=== PATIENT | female | born 1970 | race Caucasian/White ===

== ENCOUNTER 2016-11-14 14:37 | Emergency (ER) | payer OTHER ==
[~2016-11-14] VITALS: Ht 175.3 cm; Wt 84.0 kg
[~2016-11-14 14:37] MED LIST: BENTYL10 MG PO; CIPRO500 MG PO; CIPROFLOXACIN500 M1 PO; DEXEDRINE15 MG PO; DEXTROAMPHETAMINE PO; HYOSCYAMINE0.125 MG PO; KEFLEX500 MG PO; KLONOPIN1 MG PO; METFORMIN HCL500 MG PO; MOTRIN800 MG PO; NORCO 5/3251 TABLET PO; PERCOCET 5/31 TABLET PO; PREVACID30 MG PO; PROBIOTIC1 EAC1 PO; REGLAN5 MG PO; ULTRAM50 MG PO; ZOFRAN ODT4 MG PO; ZOFRAN4 MG PO; ZOVIRAX200 MG PO
[2016-11-14] MEDS ORDERED: DEXTROAMPHETAMI15 MG PO (16:18)
[2016-11-14] MEDS ORDERED: LISINOPRIL10 MG PO (16:18)
[2016-11-14 16:30] LABS: CHLORIDE 102 mEq/L (99-109); POTASSIUM 4.1 mEq/L (3.7-5.4); SODIUM 134 mEq/L (136-147)
[2016-11-14 16:32] LABS: GLUCOSE 178 mg/dL (70-99)
[2016-11-14 16:33] LABS: ANION GAP 12 MEQ/L (2-14)
[2016-11-14 16:36] LABS: GFR ESTIMATE (CALCULATED) 56 mL/min/; UREA NITROGEN (BUN) 14 mg/dL (9-23)
[2016-11-14 17:37] LABS: ADD MIUA? YES; BILIRUBIN NEGATIVE; BLOOD TRACE; COLOR YELLOW ((YELLOW)); GLUCOSE (STRIP) >=1000; KETONES TRACE; LEUKOCYTES NEGATIVE; NITRITE NEGATIVE; PH, URINE 5.5 (5-8); PROTEIN (STRIP) 30; SPECIFIC GRAVITY 1.032 (1.000-1.030); UROBILINOGEN 0.2 MG/DL (0.2-1.0)
[2016-11-14 17:59] LABS: EPITHELIAL CELLS RARE; WHITE BLOOD CELLS NONE SEEN /HPF (0-5)
[2016-11-14 18:00] LABS: BACTERIA RARE; CASTS NONE SEEN /LPF; CRYSTALS NONE SEEN; MUCUS NONE SEEN; RED BLOOD CELLS RARE /HPF (0-5)
[2016-11-14 20:49] VITALS: BP 144/67
== END 2016-11-14 20:58 | disposition home or self-care (01) ==
LOC: EME 14:37
PROVIDERS: Physician Assistant
DX: B34.9 Viral infection, unspecified (principal); R50.9 Fever, unspecified; R52 Pain, unspecified; R51 Headache; M54.5 Low back pain; Z87.442 Personal history of urinary calculi
CPT/HCPCS: 74176; 80048; 81003; 99281; 99284; J1885; J7030